=== PATIENT | male | born 1975 | race Caucasian/White ===

== ENCOUNTER 2023-08-26 05:44 | Emergency (ER) | payer MEDICAID ==
[~2023-08-26] VITALS: Ht 172.7 cm; Wt 77.1 kg
[2023-08-26] MEDS ORDERED: ONDANSETRON ODT 4 MG TAB.RAPDIS ONE (06:13)
[2023-08-26] MEDS ORDERED: SILVER SULFADIAZINE 1% CREAM 50 GM TP ONE (06:13)
[2023-08-26] MEDS ORDERED: HYDROMORPHONE 2 MG/1 ML DISP.SYRIN ONE (06:14)
[2023-08-26] MEDS ORDERED: TDAP DIPH,PERTUSS,TET VAC/PF 0.5 ML DISP.SYRIN IM ONE (06:14)
[2023-08-26] MEDS: SILVER SULFADIAZINE 1% CREAM 50 GM TP ONE (06:15)
[2023-08-26] MEDS: TDAP DIPH,PERTUSS,TET VAC/PF 0.5 ML DISP.SYRIN IM ONE (06:15)
[2023-08-26] MEDS: HYDROMORPHONE 1 MG/1 ML DISP.SYRIN IM ONE (06:15)
[2023-08-26] MEDS: ONDANSETRON ODT 4 MG TAB.RAPDIS SL ONE (06:15)
[2023-08-26 07:57] LABS: CALCIUM 8.3 mg/dL (8.5-10.1); CREATININE 0.8 mg/dL (0.6-1.3); POTASSIUM 3.5 mmol/L (3.5-5.1)
[2023-08-26] MEDS: IV NORMAL SALINE 1000 ML BAG IV ONE (10:49)
[2023-08-26 11:06] LABS: *BILIRUBIN,URIN NEGATIVE (NEGATIVE); *BLOOD, URINE NEGATIVE (NEGATIVE); *CLARITY,URINE CLEAR (CLEAR); *COLOR,URINE YELLOW (YELLOW); *KETONES,URINE NEGATIVE (NEGATIVE); *PROTEIN,URINE 1+ (NEGATIVE); *UROBILINOGEN,URINE 0.2 E.U./dl (NORMAL); LEUKOCYTE ESTERASE ,URINE NEGATIVE (NEGATIVE); NITRITE, URINE NEGATIVE (NEGATIVE); UGLUCOSE NEGATIVE (NEGATIVE)
[2023-08-26 11:29] LABS: BACTERIA,URINE NONE SEEN /HPF (NONE SEEN); RBC,URINE NONE SEEN /HPF (0-3); SQUAMOUS EPITHELIAL CELL,UR FEW /HPF (NONE SEEN); WBC,URINE 0-3 /HPF (0-3)
[2023-08-26 11:43] LABS: CALCIUM OXALATE CRYSTALS,UR FEW /HPF (NONE SEEN)
[2023-08-26] MEDS ORDERED: HYDR-3980 PO (11:43)
[2023-08-26 12:02] VITALS: BP 130/80; TEMP 98; O2SAT 99
== END 2023-08-26 12:03 | disposition home or self-care (01) ==
LOC: ER 05:58
DX: T23.021A Burn of unspecified degree of single right finger (nail) except thumb, initial encounter (principal); Z79.899 Other long term (current) drug therapy; W86.8XXA Exposure to other electric current, initial encounter; Y93.89 Activity, other specified; Y92.89 Other specified places as the place of occurrence of the external cause; Y99.8 Other external cause status
CPT/HCPCS: 99285; 96360; 80048; 81001; 84484; 36415; 93005; 90715; 16000; 90471; 96372; J1170; J7040; A4606; A4663; Q0162